=== PATIENT | male | born 1955 | race Caucasian/White ===

== ENCOUNTER 2018-02-20 09:53 | Emergency (ER) | payer MEDICARE ==
--- NOTE | 2018-02-20 13:29 | RAD ---
ACUTE ABDOMEN SERIES: 02/20/2018 FINDINGS: Supine and erect films show no free air beneath the diaphragmatic. The gas pattern is nonspecified, with gas mainly in the colon, but some small amounts in minimally prominent proximal small bowel. Te re is a moderate amount of fecal material in the right colon. No calcifications or concern are seen. Degenerative changes are prominent in the lumbar spine. A chest film in the series shows a normal sized heart and clear lungs. IMPRESSION: 1. Nonspecific abdominal findings. 2. Mild constipation. POS: [place]
== END 2018-02-20 11:10 | disposition home or self-care (01) ==
LOC: BURERS 09:53
DX: K59.00 Constipation, unspecified (principal); I10 Essential (primary) hypertension; Z79.899 Other long term (current) drug therapy
CPT/HCPCS: 74022

== ENCOUNTER 2018-03-02 16:16 | Emergency (ER) | payer MEDICARE ==
[2018-03-02 17:10] LABS: ALT (SGPT) 19 U/L (8-55); AST (SGOT) 18 U/L (5-34); Albumin 4.2 g/dL (3.4-4.8); Alkaline Phosphatase 92 U/L (40-150); Anion Gap 17 mmol/L (10-20); BUN (Urea Nitrogen) 60 mg/dL (8.4-25.7); Bilirubin, Total 0.9 mg/dL (0.2-1.2); Calc. Creatinine Clearance 0 mL/min (70-130); Calcium 9.7 mg/dL (7.8-10.44); Carbon Dioxide 18 mmol/L (23-31); Chloride 108 mmol/L (98-107); Estimated GFR-MDRD 27; Globulin 3.7 g/dL (2.4-3.5); Glucose 158 mg/dL (80-115); Potassium 4.6 mmol/L (3.5-5.1); Protein, Total 7.9 g/dL (5.8-8.1); Sodium 138 mmol/L (136-145)
[2018-03-02 17:13] LABS: #Basophils 0.1 thou/uL (0.0-0.2); #Eosinphils 0.2 thou/uL (0.0-0.7); #Monocytes 0.6 thou/uL (0.11-0.59); #Neutrophils 7.8 thou/uL (1.40-6.50); %Basophils 0.9 % (0.0-1.0); %Eosinophils 2.3 % (0.0-10.0); %Lymphocytes 10.3 % (21.0-51.0); %Monocytes 6.3 % (0.0-10.0); %Neutrophils 80.2 % (42.0-75.0); Hemoglobin 13.5 g/dL (14.0-18.0); Mean Corpuscular HGB CONC 37.3 g/dL (32.0-36.0); Mean Corpuscular Hemoglobin 29.6 pg (27.0-31.0); Mean Corpuscular Volume 79.4 fL (78.0-98.0); Mean Platelet Volume 4.8 fL (7.4-10.4); Platelet Count 187 thou/uL (130-400); RBC Distribution Width 10.4 % (11.5-14.5); Red Blood Cell (RBC) Count 4.57 mill/uL (4.70-6.10); White Blood Cell (WBC) Count 9.7 thou/uL (4.8-10.8)
[2018-03-02 17:14] LABS: MDiff Complete? YES
[2018-03-02 17:27] LABS: Bilirubin Negative (Negative); Blood, Urine Large (Negative); Clarity SLIGHTLY (Clear); Glucose, Urine (Dipstick) Negative (Negative); Leukocyte Moderate (Negative); Nitrite Negative (Negative); Protein, Urine (Dipstick) Negative (Neg-Trace); Urobilinogen 0.2 mg/dL (0.2-1.0); pH, Urine 5.5 (5.0-9.0)
[2018-03-02 17:27] LABS: CKMB 1.9 ng/mL (0-6.6)
[2018-03-02 17:34] LABS: Bacteria/HPF 1+ HPF (None Seen); Crystals/HPF None Seen HPF (Negative); Hyaline Casts/LPF NONE SEEN LPF (0-3 Hyaline); Other Casts/LPF None Seen LPF (0-3 Hyaline); Oval Fat Bodies/HPF None Seen HPF (None Seen); RBC/HPF 0-3 HPF (0-3); Renal Epithelial None Seen HPF (0-3); Sperm/HPF None Seen HPF (None Seen); Squamous Epithelial None Seen HPF (0-3); Transitional Epithelial NONE SEEN HPF (0-3); Trichomonas/HPF None Seen HPF (None Seen); Yeast-All Forms None Seen HPF (None Seen)
[2018-03-02] MEDS ORDERED: Sodium Chloride 0.9% 100 ML ONE (17:46)
[2018-03-02] MEDS ORDERED: cefTRIAXone\\ROCEPHIN 2 GM VIAL ONE (17:46)
[2018-03-02] MEDS ORDERED: Lorazepam 2 MG/ML VIAL ONE (19:57)
--- NOTE | 2018-03-02 21:03 | CT ---
CT ABDOMEN AND PELVIS WITHOUT CONTRAST 03/02/[address] of the abdomen and pelvis was performed for evaluation for gross hematuria. No prior scans were available for comparison. Axial slices were acquired, then coronal reconstructions were done. The lung bases are clear except for minor amounts of dependent atelectasis. Calcification is seen in the LAD. There is no sign of substantial pericardial fluid. No pleural effusions were seen. The liver is normal in size but has multiple cystic areas spread throughout it. The spleen is normal in size. The pancreas and adrenal glands were unremarkable. The aorta was normal in caliber. The kidneys show bilateral hydronephrosis and there is bilateral hydroureter all the way down to the ureterovesical junctions. No obvious causes for obstruction were seen, such as stones. The urinary bl adder, however, is markedly distended, presumably by the enlarged prostate. A diverticulum is seen as sociated with the anterior wall of the bladder. Additionally, there are numerous renal cysts bilatera lly, the largest attached to the right kidney and measuring 11 cms in diameter. Other low density ar eas in each kidney are presumably cyst as well, but ultrasound would be needed to confirm this. The bowel is generally unremarkable in appearance. A few loops of proximal small bowel are fluid fill ed and perhaps minimally prominent in size, but there is no evidence for obstruction or inflammatory change around bowel. The appendix appears normal. A tiny fat filled umbilical hernia was noted. There is no free air or free fluid. CT of the pelvis was mainly remarkable for the enlarged prostate (5.7 cm diameter), as well as the di stended urinary bladder and bladder diverticulum. There was no free fluid in the pelvis or inflammato ry change. Some degenerative changes are noted in the lumbar spine. IMPRESSION: 1. Bilateral hydronephrosis and hydroureter, a bit worse on the right than the left. No stones s een. 2. Distended urinary bladder and enlarged prostate. Presumably there is some degree of bladder o utlet obstruction. It may be that the hydronephrosis is in part due to reflux due to the distention. 3. Small bladder diverticulum anteriorly. 4. Multiple hepatic cysts. These could be either benign or malignant. Given that there are numer ous renal cysts bilaterally, the odds seem a little greater than these may all be benign hepatic cyst s. Other studies or followup would be needed to be certain. 5. Multiple renal cysts bilaterally. Other low density areas in the kidneys are likely to be cy sts also, but an elective ultrasound should be done to be certain all are cystic and none are solid. POS: HOME
== END 2018-03-02 20:30 | disposition short-term general hospital (02) ==
LOC: BURERS 16:16
DX: N13.2 Hydronephrosis with renal and ureteral calculous obstruction (principal); R79.89 Other specified abnormal findings of blood chemistry; N40.0 Benign prostatic hyperplasia without lower urinary tract symptoms; N13.4 Hydroureter; I10 Essential (primary) hypertension; Z79.899 Other long term (current) drug therapy
CPT/HCPCS: 74176; 80053; 81003; 81015; 82553; 84484; 85025; 87086; 93005; 96361; 96365; 96375; J0696; J2060; J7050